=== PATIENT | female | born 1945 | race Caucasian/White ===

== ENCOUNTER 2017-09-16 12:05 | Inpatient (IN) | payer OTHER, MEDICARE ==
[~2017-09-16] VITALS: Ht 175.3 cm; Wt 58.1 kg
[2017-09-16 13:30] VITALS: BP 141/71
--- NOTE | 2017-09-16 13:45 | NUR ---
DIRECT ADMIT TO ROOM 106 VIA W/C. ADMISSION ASSESSMENT COMPLETE, DEFER TO COMPUTER CHARTING. PATEINT REPORTS FEELING WEAK WITH PERIODS OF DIZZINESS AND NAUSEA FOR PAST 2 WEEKS - WENT TO PRIMARY OFFICE FOR EVAL AND HAD LABS DRAWN, DR CASANOVA CALLED AND INSTUCTED HER TO COME TO HOSPITAL BASED ON LABS. ALERT ORIENTED, LUNGS CTA - DENIES CHEST PAIN, SOA, PAIN OR NAUSEA AT THIS TIME. ORIENTED TO ROOM/CALL LIGHT AND PLAN OF CARE, VERALIZED UNDERSTANDING. CALL LIGHT WITHIN REACH, AT BEDSIDE. WILL MONITOR.
[2017-09-16] MEDS ORDERED: LOSARTAN-HCTZ1 EAC3 PO (14:26)
[2017-09-16] MEDS ORDERED: ESTRADIOL 1 MG T1 M1 PO (14:27)
[2017-09-16 14:29] LABS: ABSOLUTE BASOPHILS 0.1 thou/uL (0.0-0.2); ABSOLUTE EOSINOPHILS 0.1 thou/uL (0.0-0.7); ABSOLUTE LYMPHOCYTES 1.4 thou/uL (0.8-5.3); ABSOLUTE MONOCYTES 1.2 thou/uL (0.0-1.2); ABSOLUTE NEUTROPHILS 6.4 thou/uL (1.6-8.1); BASOPHILS 1.3 %; EOSINOPHILS 1.6 %; HEMATOCRIT 21.1 % (37.0-47.0); LYMPHOCYTES 15.3 %; MCH 16.2 pg (26.0-34.0); MCHC 29.6 g/dL (28.0-37.0); MCV 54.9 fL (80.0-100.0); MONOCYTES 13.2 %; MPV 8.6 fl. (7.2-11.1); NUCLEATED RBCS 0 /100WBC; PLATELET COUNT* 466 thou/uL (150-400); POLYS 68.6 %; RBC 3.85 mil/uL (4.20-5.00); RDW-CV 19.6 % (10.5-14.5); WBC 9.3 thou/uL (4.0-11.0)
[2017-09-16 14:33] LABS: HEMOGLOBIN 6.2 gm/dL (12.0-15.0)
[2017-09-16 14:36] LABS: APTT 21.7 Seconds (25.0-31.3); PROTIME 9.9 Seconds (9.20-11.50)
[2017-09-16 15:01] LABS: ALBUMIN 2.9 g/dL (3.4-5.0); CREATININE 0.8 mg/dL (0.6-1.3); MAGNESIUM 1.5 mg/dL (1.8-2.4); TOTAL BILIRUBIN 0.4 mg/dL (<0.1-1.0); TOTAL PROTEIN 6.3 g/dL (6.4-8.2)
[2017-09-16 15:55] VITALS: BP 145/64
[2017-09-16 16:06] LABS: % SATURATION 3 % (20-39); IRON 12 ug/dL (50-175)
[2017-09-16 16:09] LABS: ANISOCYTOSIS 2+; OVALOCYTES Occasional; PLATELET ESTIMATE ADEQUATE
[2017-09-16 16:10] LABS: HYPOCHROMASIA 2+
[2017-09-16 16:12] LABS: MICROCYTES 2+
[2017-09-16 17:13] VITALS: BP 129/71; BP 133/75; BP 138/74; BP 148/79
--- NOTE | 2017-09-16 18:11 | NUR ---
BLOOD INFUSING PER ORDERS - REPLACING ELECTROLYTES PER PROTOCOL. RESTING IN BED, HOB ELEVATED. FAMILY AT BED SIDE. NOT COMPLAINTS OF PAIN OR NAUSEA TOLERATING DIET. CALL LIGHT WITHIN REACH, WILL CONTINUE WITH PLAN OF CARE.
--- NOTE | 2017-09-16 18:23 | NUR ---
PATIENT REPORTING HAVING LOWER BACK DISCOMFORT, GIVEN PRN PO PAIN MED TO ASSIST WITH PAIN CONTROL. WILL MONITOR.
[2017-09-16 20:00] VITALS: BP 133/75
[2017-09-16 23:51] VITALS: BP 122/72
[2017-09-16 23:56] LABS: MAGNESIUM 1.5 mg/dL (1.8-2.4)
[2017-09-16 23:58] LABS: POTASSIUM 2.6 mmol/L (3.5-5.1)
[2017-09-17 06:22] LABS: HEMATOCRIT 21.5 % (37.0-47.0)
[2017-09-17 06:25] LABS: HEMOGLOBIN 6.6 gm/dL (12.0-15.0)
--- NOTE | 2017-09-17 07:35 | NUR ---
PATIENT FINISHED RECEIVING FIRST UNIT OF BLOOD. HEMOGLOBIN WAS STILL 6.6 PATIENT RECEIVED A SECOND UNIT OF BLOOD THIS MORNING. K+ WAS STILL 2.6 AFTER IT WAS REPLACED ANOTHER THREE DOSES OF POTASSIUM WAS GIVEN AND IV MAG WAS GIVEN PER PROTOCOL. LABS ARE PENDING AT THIS TIME. PATIENT IS NPO FOR EGD THIS AFTERNOON. WILL CONTINUE TO MONITOR.
[2017-09-17 07:39] LABS: ALBUMIN 2.5 g/dL (3.4-5.0); CREATININE 0.6 mg/dL (0.6-1.3); MAGNESIUM 1.7 mg/dL (1.8-2.4); TOTAL BILIRUBIN 0.7 mg/dL (<0.1-1.0); TOTAL PROTEIN 5.5 g/dL (6.4-8.2)
[2017-09-17 07:47] LABS: CALCIUM 8.4 mg/dL (8.5-10.1); POTASSIUM 3.9 mmol/L (3.5-5.1)
[2017-09-17 07:51] LABS: HEMATOCRIT 25.7 % (37.0-47.0); HEMOGLOBIN 8.2 gm/dL (12.0-15.0); MCH 19.4 pg (26.0-34.0); MCHC 31.7 g/dL (28.0-37.0); MPV 8.5 fl. (7.2-11.1); RBC 4.2 mil/uL (4.20-5.00); RDW-CV 29.9 % (10.5-14.5); WBC 5.9 thou/uL (4.0-11.0)
[2017-09-17 07:53] LABS: MCV 61.3 fL (80.0-100.0)
[2017-09-17 08:00] VITALS: BP 136/73
--- NOTE | 2017-09-17 10:49 | EKG ---
[place] [address] ELECTROCARDIOGRAM REPORT Name: RU CARBAJAL Room: [address] ADM IN M.R.#: [id number] Admission: 09/16/17 Attend Phys: Ned Card MD Discharge: Date of : 45 Report #: [id number] THIS REPORT FOR: //name// [facility] Test Date: 2017-09-16 Test Time: 16:32:11 Pat Name: RU CARBAJAL Department: Room: [address] Gender: F [employer]: : 1945 Requested By: An Colon Order Number: [id number] Reading MD: Dariel Feng Measurements Intervals [place] Rate: 71 P: 61 AK: 156 QRS: -21 QRSD: 91 T: 64 QT: 406 QTc: 442 Interpretive Statements Sinus rhythm LVH with secondary repolarization abnormality No previous ECG available for comparison Electronically Signed On 09-17-2017 10:49:44 CDT by Dariel Feng [email or web address] <ELECTRONICALLY SIGNED> By: Dariel Feng MD, [facility] 09/17/17 1049 D: 05/1631 31 Dariel Feng MD, FACC /EPI
[2017-09-17 12:30] VITALS: BP 118/85
[2017-09-17] MEDS ORDERED: PROTONIX40 M1 PO (13:44)
[2017-09-17] MEDS ORDERED: CARAFATE 1 GM TA1 G1 PO (13:44)
[2017-09-17 13:53] VITALS: BP 136/73
--- NOTE | 2017-09-18 14:04 | PATH ---
[address] [place] [address] PATHOLOGY RPT PROCEDURE Name: RU CARBAJAL Room: [address] IN M.R.#: [id number] Admission: 09/16/17 Date of : 45 Discharge: 09/17/17 Report #: [id number] Path Case #: [id number] [facility] Accession Number: [id number] . 01 Material submitted: . BIOPSY, GASTRIC ULCER . 01 Clinical history: . None provided . 02 Diagnosis: Gastric ulcer biopsy: - Nonspecific, severe chronic and active gastritis, with prominent intestinal metaplasia, negative for Helicobacter pylori organisms, granulomas and dysplasia. (DAPHNEY:pit; 09/18/2017) QTP/09/18/2017 . 02 Comment: Special stain: H. pylori immuno . 02 Electronically signed: . John Dinh MD, Pathologist NPI- [id number] . 01 Gross description: . Received in formalin labeled "Handy, Ru, gastric ulcer biopsy," are multiple segments of howell soft tissue measuring 1.4 x 0.5 x 0.2 cm in aggregate dimensions and ranging from 0.1 to 0.4 cm in maximum dimension. The specimen is filtered and submitted entirely in cassette A1. (TSD; 09/17/2017) TOB/TOB . 02 CPT . 534031, [id number] Performed at: [address], [place] [id number] MD Lamberto Garcia MD Phone: [phone] Performed at: 02 [facility] [address], [place], [place] [id number] MD John Dinh MD Phone: [phone]
--- NOTE | 2017-09-20 08:55 | CON ---
[facility] [address] [place] [address] CONSULTATION Name: RU CARBAJAL Room: [address] IN M.R.#: [id number] Admission: 09/16/17 Attend Phys: Ned Card MD Discharge: 09/17/17 Date of : 45 Report #: [id number] THIS REPORT FOR: //name// CC: Jonas Card MD DATE OF SERVICE: 09/16/2017 REQUESTING PHYSICIAN: Ned Card M.D. REASON FOR CONSULT: Severe anemia. HISTORY OF PRESENT ILLNESS: This is a 72-year-old female who has been seen in our office a year ago in regards to her gallbladder disease. She had ultrasound and a PIPIDA scan at that time. She reports that she never followed up in that regards. The patient was seen by her primary care doctor, Dr. Currie yesterday in regards to her abdominal pain, and basic labs were ordered. She was found to have hemoglobin of 6.1. She was told to come to hospital for further workup. She denies ever having upper and lower endoscopies in the past. She also denies any hematochezia, melena, change in stool habits and caliber. The patient admits that she takes Excedrin daily for her back pain. PAST MEDICAL HISTORY: Significant for hypertension, chronic abdominal pain, scoliosis, DJD. ALLERGIES: No known drug allergy. MEDICATIONS: Please refer to hospital MAR. SOCIAL HISTORY: The patient is . Denies tobacco or alcohol use. FAMILY HISTORY: Negative for GI malignancy. PHYSICAL EXAMINATION: VITAL SIGNS: Reveals normal vitals. LUNGS: Clear. CARDIOVASCULAR: Regular. ABDOMEN: Soft, nontender, nondistended. Bowel sounds are positive. NEUROLOGIC: The patient is alert, oriented x 3. LABORATORY DATA: Reveal sodium of 131, potassium 2.0, chloride is 92, CO2 is 35, anion gap is 4, BUN is 13, creatinine 0.8. AST is 39, ALT is 27, total bilirubin is 0.4. Albumin is 2.9. Vitamin B12 level is 1043. [place] [address] CONSULTATION Name: MADYSloanRU ANN Room: [address] IN [facility]#: [id number] Admission: 09/16/17 Attend Phys: Ned Card MD Discharge: 09/17/17 Date of : 45 Report #: [id number] level is pending. WBC is 9.3, hemoglobin is 6.2, platelets are 466. IMAGING: The patient has had an ultrasound and hepatobiliary scan a year ago, which were both negative. ASSESSMENT AND PLAN: The patient with severe anemia who denies ever having any upper or lower endoscopy and also denies any hematochezia or melena. She is known to take Excedrin for her back pain and scoliosis. Since her potassium is only 2, I will replace the potassium and just schedule her for EGD tomorrow. We will consider a colonoscopy on the following day once her potassium improves. Meanwhile, we will transfuse her with 2 units of packed RBC. <ELECTRONICALLY SIGNED> By: An Colon MD 09/20/17 0855 [id number] Colon MD /nt
== END 2017-09-17 14:30 | disposition home or self-care (01) | DRG 391 ==
LOC: M.ORTHSURG 12:05
PROVIDERS: Internal Medicine Gastroenterology; ADMIT Internal Medicine
PROC: 30233N1 Transfusion of Nonautologous Red Blood Cells into Peripheral Vein, Percutaneous Approach (ICD-10-PCS; principal; 2017-09-16)
PROC: 30233N1 Transfusion of Nonautologous Red Blood Cells into Peripheral Vein, Percutaneous Approach (ICD-10-PCS; 2017-09-17)
PROC: 0DB68ZX Excision of Stomach, Via Natural or Artificial Opening Endoscopic, Diagnostic (ICD-10-PCS; 2017-09-17)
DX: K21.0 Gastro-esophageal reflux disease with esophagitis (principal); K25.4 Chronic or unspecified gastric ulcer with hemorrhage; D50.9 Iron deficiency anemia, unspecified; K22.2 Esophageal obstruction; I10 Essential (primary) hypertension; M41.9 Scoliosis, unspecified; G89.29 Other chronic pain; R10.9 Unspecified abdominal pain; M47.9 Spondylosis, unspecified; K44.9 Diaphragmatic hernia without obstruction or gangrene; Z79.899 Other long term (current) drug therapy

== ENCOUNTER → 2017-11-27 | Outpatient (CLI) | payer OTHER, MEDICARE ==
[~2017-11-27] MED LIST: CARAFATE 1 GM TA1 G1 PO; ESTRADIOL 1 MG T1 M1 PO; LOSARTAN-HCTZ1 EAC3 PO; PROTONIX40 M1 PO
== END ==
LOC: M.LAB 01:12
DX: Z01.812 Encounter for preprocedural laboratory examination (principal); I10 Essential (primary) hypertension